=== PATIENT | male | born 1970 | race Caucasian/White ===

== ENCOUNTER 2019-07-13 16:48 | Emergency (ER) | payer OTHER ==
[~2019-07-13] VITALS: Ht 182.9 cm; Wt 93.0 kg
[2019-07-13 17:34] LABS: ABSOLUTE NEUTROPHILS 6.2 thou/uL (1.4-8.2); BASOPHILS 0.4 % (0.0-2.0); EOSINOPHILS 0.3 % (0.0-3.0); HEMATOCRIT 46.2 % (42.0-52.0); HEMOGLOBIN 15.6 gm/dL (14.0-18.0); LYMPHOCYTES 19.5 % (24.0-44.0); MCHC 33.8 g/dL (28.0-37.0); MCV 88.6 fL (80.0-100.0); MONOCYTES 7.5 % (1.0-8.0); PLATELET COUNT 235 thou/uL (150-400); POLYS 72.3 % (36.0-66.0); RBC 5.22 mil/uL (4.50-6.00); RDW 12.9 % (10.5-14.5); WBC 8.5 thou/uL (4.0-11.0)
[2019-07-13 17:42] LABS: ANION GAP 11 mmol/L (7-16); BUN 14 mg/dL (7-18); CALCIUM 9.5 mg/dL (8.5-10.1); CHLORIDE 102 mmol/L (98-107); CO2 26 mmol/L (21-32); CREATININE 1.2 mg/dL (0.7-1.3); GLUCOSE 103 mg/dL (74-106); POTASSIUM 3.7 mmol/L (3.5-5.1); SODIUM 139 mmol/L (136-145)
[2019-07-13 17:51] LABS: ALBUMIN 4.2 g/dL (3.4-5.0); SGOT 21 U/L (15-37); SGPT 30 U/L (30-65); TOTAL BILIRUBIN 0.8 mg/dL (<0.1-1.0); TOTAL PROTEIN 7.5 g/dL (6.4-8.2); TROPONIN-I <0.06 ng/mL (<0.06)
[2019-07-13] MEDS ORDERED: CARAFATE 1 GM TA1 G1 PO (18:47)
[2019-07-13] MEDS ORDERED: OMEPRAZOLE 20 M20 M1 PO (18:47)
[2019-07-13 19:05] VITALS: BP 125/83
--- NOTE | 2019-07-14 11:43 | EKG ---
[place] [address] [facility] [place] [address] [place] [address] ELECTROCARDIOGRAM REPORT Name: TENZIN LOMBARDI Room #: DAYO Kuo#: [id number] Admission: 07/13/19 Attend Phys: Discharge: 07/13/19 Date of : 74 Report #: [id number] THIS REPORT FOR: //name// [facility] ED Test Date: 2019-07-13 Test Time: 17:18:31 Pat Name: TENZIN LOMBARDI Department: Room: Gender: Neighborhood Aide: tjohdain : 1970 Requested By: Erich Terrell Order Number: [id number] MD: Ede Jon Measurements Intervals [place] Rate: 70 P: 60 WY: 176 QRS: 36 QRSD: 109 T: 6 QT: 397 QTc: 429 Interpretive Statements Sinus rhythm Abnormal inferior Q waves No previous ECG available for comparison Electronically Signed On 07-14-2019 11:43:14 CDT by Ede Jon [email or web address] <ELECTRONICALLY SIGNED> By: Ede Jon MD 07/14/19 1143 1718 1718 Ede Jon MD /ERIC
== END 2019-07-13 19:05 | disposition home or self-care (01) ==
LOC: ER 16:48
PROVIDERS: Physician Assistant
DX: K21.9 Gastro-esophageal reflux disease without esophagitis (principal); M54.6 Pain in thoracic spine